=== PATIENT | male | born 1955 | race Caucasian/White ===

== ENCOUNTER → 2016-05-19 | Outpatient (CLI) | payer BC | LOC: RAD 14:23 | PROVIDERS: ATTEND Internal Medicine | DX: R07.9 Chest pain, unspecified (principal); R06.02 Shortness of breath | CPT/HCPCS: 71020 ==

== ENCOUNTER → 2017-08-30 | Outpatient (CLI) | payer BC, MEDICARE ==
--- NOTE | 2017-08-30 16:32 | RADIOLOGY REPORT (SQ) ---
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 T1 post ga dolinium sequences. CONTRAST TYPE AND DOSE: 20 mL Multihance. RENAL FUNCTION: GFR > 60. LIMITATIONS: None. FINDINGS: LOCALIZER: No worrisome findings. ALIGNMENT: Normal. VERTEBRAE AND BONE MARROW: Chronic appearing compression deformities are present at T5, T7, T8, T9, T 11, and T12. At these levels, 25 to 50% vertebral body loss of height is present. There is minimal edema and enhancement adjacent to the upper endplate of T7. Contrast-enhancement of a T3 benign rachel ngioma. No paraspinal soft tissue worrisome for extramedullary hematopoiesis HARDWARE: None in the spine. CORD: Normal in size and signal intensity. No abnormal contrast enhancement. SOFT TISSUES: No soft tissue masses. THORACIC DISCS T1-T12: No central canal stenosis. Mild bilateral foraminal narrowing from facet arth ropathy from T4-5 through T10-11. LOWER CERVICAL: Not in the field of view UPPER LUMBAR: Dictated separately ENHANCEMENT: No abnormal conus, thoracic cord or nerve root enhancement. Minimal upper endplate T7 v ertebral body enhancement adjacent to a central endplate depression or Schmorl's node. OTHER: No other significant finding. IMPRESSION: Multiple chronic mid and lower thoracic spine compression deformities. Multilevel reynold inal narrowing from facet arthropathy. TECHNICAL DOCUMENTATION: JOB ID: [id number]- All Rights Reserved Reading location - IP/workstation name: [email or web address]
--- NOTE | 2017-08-30 16:40 | RADIOLOGY REPORT (SQ) ---
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 Coronal T2/HASTE imaging. CONTRAST TYPE AND DOSE: 20 mL Multihance. RENAL FUNCTION: GFR > 60. LIMITATIONS: None. FINDINGS: VISUALIZED UPPER ABDOMEN: Multiple bilateral renal cortical cysts, the largest is 8 to 9 c m in diameter right lower pole kidney. SEGMENTATION: No transitional anatomy. The lowest well-developed disc space is labeled L5-S1. ALIGNMENT: Anatomic. VERTEBRAE AND BONE MARROW: Chronic appearing compression deformities are present at T12, L1, L3, and L4 with endplate depressions and 25% loss of height. Patient has known myeloma. DISC SIGNAL: Diffuse decreased T2 weighted intervertebral disc signal with relative sparing of L5-S1. POSTERIOR ELEMENTS: Diffuse facet arthropathy HARDWARE: None in the spine. CORD AND CONUS: Normal in size and signal intensity. Conus at the L1 level. No abnormal conus or lum bar nerve root enhancement. SOFT TISSUES: No aortic aneurysm seen. No bulky retroperitoneal adenopathy or mass. No paraspinal mas s or fluid. T12-L1: No central or foraminal encroachment. Mild facet arthropathy L1-L2: Broad diffuse posterior disc bulging and moderate bilateral facet and ligament hypertrophy is present. Mild central canal stenosis. Mild bilateral inferior foraminal narrowing without exiting L 1 nerve root impingement. L2-L3: Broad diffuse posterior disc bulge and bony spurring and bulky bilateral facet and ligament hy pertrophy causes high-grade central canal stenosis. There is flattening of the thecal sac with the e ffacement of the CSF around the lumbar nerve roots best shown on axial T2 image 14. There is mild bi lateral inferior foraminal narrowing without exiting L2 nerve root impingement. L3-L4: Moderate central canal stenosis results from broad diffuse posterior disc bulge and bony spurr ing with moderate facet and ligament hypertrophy. Partial effacement of the CSF around the lumbar ne rve roots best shown on axial T2 image 19. There is mild bilateral inferior foraminal narrowing with out exiting L3 nerve root impingement. L4-L5: Mild central canal stenosis results from broad diffuse disc bulge and moderate bilateral facet and ligament hypertrophy. [id number] bilateral foraminal narrowing without exiting L4 nerve r oot impingement. L5-S1: No central stenosis. Asymmetric right-sided facet arthropathy with moderate right foraminal n arrowing. No left foraminal narrowing. No exiting nerve root impingement. SACRUM: Visualized upper sacrum intact. ENHANCEMENT: No abnormal vertebral body, conus, or lumbar nerve root enhancement. There is enhanceme nt of the facet joint synovium bilaterally at L2-3, L3-4, and L4-5. OTHER: No other significant findings. IMPRESSION: High-grade central canal stenosis at L2-3. TECHNICAL DOCUMENTATION: JOB ID: [id number] [employer]- All Rights Reserved Reading location - IP/workstation name: [email or web address]
== END ==
LOC: RAD 09:34
PROVIDERS: ATTEND Internal Medicine
DX: C90.00 Multiple myeloma not having achieved remission (principal); M48.061 Spinal stenosis, lumbar region without neurogenic claudication
CPT/HCPCS: 82565; 72157; 72158; A9577

== ENCOUNTER → 2017-12-30 | Outpatient (CLI) | payer BC, MEDICARE ==
--- NOTE | 2017-12-30 16:48 | RADIOLOGY REPORT (SQ) ---
EXAM DESCRIPTION: RIBS BILATERAL W/PA CHEST COMPLETED DATE/TIME: 12/30/2017 4:36 pm REASON FOR STUDY: PLEURODYNIA;INTERCOSTAL PAIN R07.82 INTERCOSTAL PAIN R07.81 PLEURODYNIA COMPARISON: None. NUMBER OF VIEWS: 10 views TECHNIQUE: Images acquired of the right and left ribs in the area of focal concern. LIMITATIONS: None. FINDINGS: RIBS: No acute displaced fracture. No worrisome bone lesions. LUNGS: Limited exam. No obvious pneumothorax. No pleural effusion. OTHER: No other significant finding. IMPRESSION: NO ACUTE DISPLACED RIB FRACTURE. COMMENT: SITE OF TRAUMA/COMPLAINT MARKED/STAMP COMPLETED: Yes TECHNICAL DOCUMENTATION: JOB ID: [id number] [employer]- All Rights Reserved Reading location - IP/workstation name: [email or web address]
== END ==
LOC: RAD 15:58
PROVIDERS: ATTEND Internal Medicine
DX: R07.82 Intercostal pain (principal); R07.81 Pleurodynia
CPT/HCPCS: 71111